=== PATIENT | male | born 1955 | race Caucasian/White ===

== ENCOUNTER → 2022-05-18 | Emergency (ER) | payer OTHER ==
[~2022-05-18] VITALS: Ht 185.4 cm; Wt 108.9 kg
[~2022-05-18] MED LIST: IOHEXOL 350 100 ML INFUS..BTL ONE; IV NORMAL SALINE 250 ML IV ONE; MAG HYDROX/AL HYDROX/SIMETH 30 ML LIQUID UDC ONE; MAG HYDROX/AL HYDROX/SIMETH 30 ML LIQUID UDC PO ONE; MORPHINE SULFATE 4 MG/1 ML DISP.SYRIN IV ONE; MORPHINE SULFATE 4 MG/1 ML DISP.SYRIN ONE; ONDA4TAB5 GT; ONDANSETRON 4 MG/2 ML VIAL IV ONE; ONDANSETRON 4 MG/2 ML VIAL ONE; PANTOPRAZOLE SODIUM 40 MG VIAL IV ONE; PANTOPRAZOLE SODIUM 40 MG VIAL ONE; SWABABLE VALVE TRANSFER SET EA MC ONE
--- NOTE | 2022-05-18 08:00 | NUR ---
PT BROUGHT IN BY RA. PLACED ON VAULT ATTENDANT AND VS ASSESSED. ER MD AT BEDSIDE.
[2022-05-18 08:19] LABS: HEMATOCRIT 42.5 % (36.7-47.1); MEAN CORPUSCULAR HEMOGLOBIN 31.4 uug (23.8-33.4); MEAN CORPUSCULAR VOLUME 87.8 fL (73.0-96.2); PLATELET COUNT (AUTO) 231 K/uL (152-348)
[2022-05-18 08:47] LABS: CARBON DIOXIDE 28 mmol/L (21-32); CHLORIDE 101 mmol/L (98-107); CREATININE 0.9 mg/dL (0.6-1.3); GLUCOSE 137 mg/dL (74-106); POTASSIUM 3.7 mmol/L (3.5-5.1); UREA NITROGEN, BLOOD 11 mg/dL (7-18)
[2022-05-18 08:57] LABS: ALANINE AMINOTRANSFERASE 31 U/L (16-63); ALKALINE PHOSPHATASE 108 U/L (50-136); ASPARTATE AMINOTRANSFERASE 16 U/L (15-37); BILIRUBIN,DIRECT 0.1 mg/dL (0.0-0.2); BILIRUBIN,TOTAL 0.7 mg/dL (0.2-1.0); LIPASE 56 U/L (73-393); TOTAL PROTEIN, SERUM 8.2 g/dL (6.4-8.2)
[2022-05-18 09:04] LABS: *BILIRUBIN,URIN NEGATIVE (NEGATIVE); *BLOOD, URINE NEGATIVE (NEGATIVE); *CLARITY,URINE CLEAR (CLEAR); *COLOR,URINE YELLOW (YELLOW); *KETONES,URINE 1+ (NEGATIVE); LEUKOCYTE ESTERASE ,URINE NEGATIVE (NEGATIVE); NITRITE, URINE NEGATIVE (NEGATIVE); UGLUCOSE NEGATIVE (NEGATIVE)
[2022-05-18 09:35] LABS: BACTERIA,URINE NONE SEEN /HPF (NONE SEEN); RBC,URINE NONE SEEN /HPF (0-3)
[2022-05-18 09:39] LABS: SQUAMOUS EPITHELIAL CELL,UR NONE SEEN /HPF (NONE SEEN); WBC,URINE 0-3 /HPF (0-3)
--- NOTE | 2022-05-18 09:55 | NUR ---
PT IN NAD; STATES ABD PAIN IS IMPROVED 2/10.SPOUSE AT BEDSIDE.
--- NOTE | 2022-05-18 11:55 | NUR ---
Patient discharged to home in stable condition. Written and verbal after care instructions given. Patient verbalizes understanding of instructions. Stressed follow up or return to ER for worsening s/s.
[2022-05-18 11:59] VITALS: BP 159/92
== END | disposition home or self-care (01) ==
LOC: ER 07:38
DX: R11.0 Nausea (principal); R10.9 Unspecified abdominal pain; R11.2 Nausea with vomiting, unspecified; K59.00 Constipation, unspecified; K57.90 Diverticulosis of intestine, part unspecified, without perforation or abscess without bleeding; D17.79 Benign lipomatous neoplasm of other sites; N40.0 Benign prostatic hyperplasia without lower urinary tract symptoms; K40.20 Bilateral inguinal hernia, without obstruction or gangrene, not specified as recurrent; K74.60 Unspecified cirrhosis of liver; Z80.0 Family history of malignant neoplasm of digestive organs; Z90.49 Acquired absence of other specified parts of digestive tract
CPT/HCPCS: 99285; 74177; 96374; 96375; 80076; 80048; 81001; 83690; 85025; 84484 ×2; 36415; 93005; 83605; J2405; Q9967; C9113; J2270; A4663